=== PATIENT | female | born 1985 | race Caucasian/White ===

== ENCOUNTER 2017-11-11 11:53 | Emergency (ER) | payer MEDICAID, OTHER ==
[~2017-11-11] VITALS: Ht 157.5 cm; Wt 95.3 kg
[2017-11-11 11:59] VITALS: BP 120/75
--- NOTE | 2017-11-11 12:09 | NUR ---
32/F C/O RIGHT EYE REDNESS, TEARING AND INTERMITTENT PAIN FOR THE PAST 3 DAYS. PT DENIES ANY DRAINAGE. DENIES ANY INJURY TO EYE, DENIES FEELING LIKE SOMETHING IS INSIDE THE EYE. PT C/O PAIN WHEN PRESSING ON HER EYELID. EYES PERRLA. DENIES N/V/D. DENIES FEVER OR CHILLS. PT DENIES ANY CHANGES IN VISION, DENIES BLURRY VISION. AOX4 WITH CLEAR SPEECH. VSS.
--- NOTE | 2017-11-11 12:14 | NUR ---
DR. HOOD EVALUATING PT AT BEDSIDE
--- NOTE | 2017-11-11 12:14 | NUR ---
Patient being evaluated by Dr. Camara at bedside.
[2017-11-11] MEDS ORDERED: TETRACAINE HCL/PF 0.5% OPTH 4 ML BTL OP ONE (12:20)
[2017-11-11] MEDS ORDERED: TETRACAINE HCL/PF 0.5% OPTH 4 ML BTL ONE (12:20)
[2017-11-11] MEDS ORDERED: FLUORESCEIN OPTH STRIP 0.6 MG OP ONE (12:20)
[2017-11-11] MEDS ORDERED: FLUORESCEIN OPTH STRIP 0.6 MG ONE (12:21)
[2017-11-11 13:17] VITALS: BP 132/80
--- NOTE | 2017-11-11 13:17 | NUR ---
Patient discharged with v/s stable. Written and verbal after care instructions given and explained. Patient verbalized understanding. Ambulatory with steady gait. All questions addressed prior to discharge. Advised to follow up with PMD. Work excuse provided for today.
== END 2017-11-11 13:17 | disposition home or self-care (01) ==
LOC: MED 11:53
DX: H57.11 Ocular pain, right eye (principal)
CPT/HCPCS: 99283

== ENCOUNTER 2018-10-22 08:25 | Emergency (ER) | payer OTHER ==
[~2018-10-22] VITALS: Ht 157.5 cm; Wt 99.3 kg
[2018-10-22 08:36] VITALS: BP 135/85
--- NOTE | 2018-10-22 08:45 | NUR ---
PT. BIB SELF WITH C/O VOMITING, DIARRHEA, STOMACH CRAMPS X YESTERDAY. PT STATES SHE ATE SOME BAD CHICKEN YESTERDAY. PT. DENIES ANY BLOOD IN VOMIT OR FECES. PT HAS 6/10 ABD CRAMPING PAIN THAT RADIATES ALL OVER ABD. DENIES ANY FEVER OR CHILLS. LAST TIME SHE VOMITED WAS AT 0630 PER PATIENT. ABD ROUND AND SOFT AND ACTIVE X 4 QUADS. ER MD MADE AWARE. SAFETY PRECAUTIONS IMPLEMENTED. WILL CONTINUE TO MONITOR.
[2018-10-22] MEDS ORDERED: DIPHENOXYLATE /ATROPINE 2.5 MG TAB PO ONE (09:20)
[2018-10-22] MEDS ORDERED: ONDANSETRON 4 MG ODT PO ONE (09:20)
[2018-10-22 10:04] VITALS: BP 130/86
--- NOTE | 2018-10-22 10:04 | NUR ---
Patient discharged with v/s stable. Written and verbal after care instructions given and explained. Patient alert, oriented and verbalized understanding of instructions. Ambulatory with steady gait. All questions addressed prior to discharge. ID band removed. Patient advised to follow up with PMD. Rx of LOMOTIL AND ZOFRAN given. Patient educated on indication of medication including possible reaction and side effects. Opportunity to ask questions provided and answered.
== END 2018-10-22 10:04 | disposition home or self-care (01) ==
LOC: MED 08:25
DX: R11.2 Nausea with vomiting, unspecified (principal); R19.7 Diarrhea, unspecified
CPT/HCPCS: 99283; Q0162

== ENCOUNTER 2019-11-22 23:17 | Emergency (ER) | payer OTHER ==
[~2019-11-22] VITALS: Ht 157.5 cm; Wt 93.0 kg
--- NOTE | 2019-11-22 23:18 | NUR ---
PT JOB ALS TO ER BED 9
--- NOTE | 2019-11-22 23:20 | NUR ---
PER EMS AND PATIENT [place] [employer] ON SCENE. OFFICER: Jamal GODWIN
[2019-11-22 23:22] VITALS: BP 145/97
--- NOTE | 2019-11-22 23:22 | NUR ---
DR. JAIME BEDSIDE EVALUATING PT
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
[2019-11-22] MEDS ORDERED: AMOXIL/CLAVULANATE 875/125 MG 1 TAB PO ONE (23:30)
[2019-11-22] MEDS ORDERED: LIDOCAINE 2% 1000 MG/50 ML VIAL INJ ONE (23:30)
[2019-11-22] MEDS ORDERED: KETOROLAC 30 MG/ML VIAL IM ONE (23:30)
[2019-11-22] MEDS ORDERED: LORazepam 1 MG TAB PO ONE (23:30)
--- NOTE | 2019-11-22 23:47 | NUR ---
AT BEDSIDE PERFORMING LAC REPAIR
[2019-11-23] MEDS ORDERED: BACITRACIN OINT 500 UNITS/GM PKT TP ONE ×2 (00:11→00:20)
[2019-11-23 00:29] VITALS: BP 140/90
--- NOTE | 2019-11-23 00:29 | NUR ---
Patient discharged with v/s stable. Written and verbal after care instructions given and explained. Patient alert, oriented and verbalized understanding of instructions. Ambulatory with steady gait. All questions addressed prior to discharge. ID band removed. Patient advised to follow up with PMD. Rx of AUGMENTIN/IBUPROFEN given. Patient educated on indication of medication including possible reaction and side effects. Opportunity to ask questions provided and answered.
--- NOTE | 2019-11-23 00:31 | NUR ---
Note domenicaone in EDM - 11/23/19 at 0036 by ABBY Patient discharged with v/s stable. Written and verbal after care instructions given and explained to parent/guardian. Parent/Guardian verbalized understanding of instructions. Ambulatory with steady gait. All questions addressed prior to discharge. ID band removed. Parent/Guardian advised to follow up with PMD. Rx of amoxicillin, motrin given. Parent/Guardian educated on indication of medication including possible reaction and side effects. Opportunity to ask questions provided and answered.
== END 2019-11-23 00:22 | disposition home or self-care (01) ==
LOC: MED 23:17
DX: S01.112A Laceration without foreign body of left eyelid and periocular area, initial encounter (principal); Y04.1XXA Assault by human bite, initial encounter; Y93.89 Activity, other specified; Y92.89 Other specified places as the place of occurrence of the external cause; Y99.8 Other external cause status
CPT/HCPCS: 12014; 96372; 99284; J1885; J2001

== ENCOUNTER 2019-12-01 09:18 | Emergency (ER) | payer OTHER ==
[~2019-12-01] VITALS: Ht 157.5 cm; Wt 94.5 kg
[2019-12-01 09:23] VITALS: BP 128/98
--- NOTE | 2019-12-01 09:26 | NUR ---
Patient ambulated to bed 4. RN evaluating patient at bedside.
--- NOTE | 2019-12-01 09:40 | NUR ---
dr poe at bedside for suture removal
--- NOTE | 2019-12-01 09:43 | NUR ---
PT NEEDS SUTURE REMOVAL TO LEFT EYEBROW THAT WAS PLACED 11/22/19 15 SUTURES PLACED. -REDNESS, -D/C, -PAIN. PT VS STABLE. PT ALERT AND AWAKE, AMBULATORY.
--- NOTE | 2019-12-01 10:00 | NUR ---
Patient discharged with v/s stable. Written and verbal after care instructions given and explained. Patient verbalized understanding. Ambulatory with steady gait. All questions addressed prior to discharge. Advised to follow up with PMD. PT ADVISED TO APPLY BACITRACIN TO SITE
== END 2019-12-01 10:00 | disposition home or self-care (01) ==
LOC: MED 09:18
DX: S01.112D Laceration without foreign body of left eyelid and periocular area, subsequent encounter (principal); X58.XXXD Exposure to other specified factors, subsequent encounter
CPT/HCPCS: 99281

== ENCOUNTER 2019-12-13 10:45 | Emergency (ER) | payer OTHER ==
[~2019-12-13] VITALS: Ht 157.5 cm; Wt 94.0 kg
--- NOTE | 2019-12-13 10:50 | NUR ---
Patient ambulated to bed 12. RN evaluating the patient at bedside.
[2019-12-13 10:55] VITALS: BP 115/78
--- NOTE | 2019-12-13 10:55 | NUR ---
RAND ROY AT BEDSIDE
--- NOTE | 2019-12-13 11:04 | NUR ---
Dr. Olivera is evaluating the patient at bedside.
--- NOTE | 2019-12-13 11:05 | NUR ---
PT C/O PRESSURE-LIKE STERNAL CP RADIATING TO UPPER BACK FOR ONE WEEK. PT ALSO REPORTS NAUSE, SOB, DRY COUGH, AND ACID REFLUX. DENIES FEVER, RECENT TRAVEL OR SICK CONTACTS. PATIENT STATES PAIN OF 8/10 AT THIS TIME; VSS; PATIENT POSITIONED FOR COMFORT; HOB ELEVATED; BEDRAILS UP X1; BED DOWN. ER MD MADE AWARE OF PT STATUS.
[2019-12-13] MEDS ORDERED: ALUMINUM HYD/MAG/SIMETHICONE 30 ML UDC ONE (11:09)
[2019-12-13] MEDS ORDERED: LIDOCAINE VISCOUS 2% 20 ML UDC ONE (11:09)
[2019-12-13] MEDS ORDERED: DICYCLOMINE HCL LIQUID 20 MG, ALUMINUM HYD/MAG/SIMETHICONE 30 ML, LIDOCAINE VISCOUS 2% ... PO ONE ×3 (11:10)
[2019-12-13] MEDS ORDERED: DICYCLOMINE HCL LIQUID 10 MG/5 ML UDC ONE (11:10)
[2019-12-13 13:04] VITALS: BP 125/75
--- NOTE | 2019-12-13 13:04 | NUR ---
Patient discharged with v/s stable. Written and verbal after care instructions given and explained. Patient alert, oriented and verbalized understanding of instructions. Ambulatory with steady gait. All questions addressed prior to discharge. ID band removed. Patient advised to follow up with PMD. Rx of PRILOSEC given. Patient educated on indication of medication including possible reaction and side effects. Opportunity to ask questions provided and answered.
== END 2019-12-13 13:04 | disposition home or self-care (01) ==
LOC: MED 10:45
DX: K29.70 Gastritis, unspecified, without bleeding (principal)
CPT/HCPCS: 71045; 99283

== ENCOUNTER 2020-03-03 13:23 | Emergency (ER) | payer OTHER ==
[~2020-03-03] VITALS: Ht 157.5 cm; Wt 90.7 kg
[2020-03-03 13:32] VITALS: BP 150/85
--- NOTE | 2020-03-03 13:54 | NUR ---
C/O EPIGASTRIC PAIN 10/10 RADIAITNG UP CHEST X 2 WEEKS. STATES SHE FEELS IF SHE HAS TO BURP. STATES SHE WAS PRESCRIBED OMEPRAZOLE FOR S/S BUT HAS HAD NO RELIEF. PT STATES PAIN IS WORSE AFTER EATING. PT STATES SHE TENDS TO EAT SPICY FOOD, INSTRUCTED PT TO AVOID EATING SPICY FOOD IT WORSENS GERD. PT DENIES N/V/D. PT HAS COVID TESTED NEGATIVE 2 WEEKS AGO. 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 PT ALERT AND AWAKE, AMBULATORY. MED HX:DENIES
[2020-03-03] MEDS ORDERED: DICYCLOMINE HCL LIQUID 20 MG, ALUMINUM HYD/MAG/SIMETHICONE 30 ML, LIDOCAINE VISCOUS 2% ... PO ONE ×3 (13:55)
[2020-03-03] MEDS ORDERED: DICYCLOMINE HCL LIQUID 10 MG/5 ML UDC ONE (14:00)
[2020-03-03] MEDS ORDERED: ALUMINUM HYD/MAG/SIMETHICONE 30 ML UDC ONE (14:00)
[2020-03-03] MEDS ORDERED: LIDOCAINE VISCOUS 2% 20 ML UDC ONE (14:00)
--- NOTE | 2020-03-03 14:03 | NUR ---
GI COCKTAIL ADMINISTERED
--- NOTE | 2020-03-03 14:58 | NUR ---
PT REPORTS RELIEF FROM ACID REFLEX, PAIN / NOW
[2020-03-03 14:59] VITALS: BP 142/74
--- NOTE | 2020-03-03 14:59 | NUR ---
Patient discharged with v/s stable. Written and verbal after care instructions given and explained REGARDING INDIGESTION. Patient alert, oriented and verbalized understanding of instructions. Ambulatory with steady gait. All questions addressed prior to discharge. ID band removed. Patient advised to follow up with PMD. Rx of MAALOX AND PEPCID given. Patient educated on indication of medication including possible reaction and side effects. Opportunity to ask questions provided and answered. PT ISNTRUCTED TO FOLLOW UP WITH PCP AND SUGGEST AN ENDOSCOPY AND H PYLOYI TEST
== END 2020-03-03 14:59 | disposition home or self-care (01) ==
LOC: MED 13:23
DX: R07.9 Chest pain, unspecified (principal); I10 Essential (primary) hypertension; K21.9 Gastro-esophageal reflux disease without esophagitis
CPT/HCPCS: 71045; 81025; 93005; 99283; Q0092; 99284

== ENCOUNTER 2020-04-04 07:58 | Emergency (ER) | payer OTHER ==
[~2020-04-04] VITALS: Ht 157.5 cm; Wt 90.7 kg
[2020-04-04 08:06] VITALS: BP 145/89
[2020-04-04 08:41] VITALS: BP 145/89
== END 2020-04-04 08:40 | disposition home or self-care (01) ==
LOC: MED 07:58
DX: H10.9 Unspecified conjunctivitis (principal)
CPT/HCPCS: 99283

== ENCOUNTER 2020-11-04 02:40 | Emergency (ER) | payer OTHER ==
[~2020-11-04] VITALS: Ht 157.5 cm; Wt 87.6 kg
[2020-11-04 02:43] VITALS: BP 134/96
[2020-11-04] MEDS ORDERED: IBUPROFEN 600 MG TAB PO ONE (03:25)
[2020-11-04] MEDS ORDERED: IBUP-2213 PO (03:30)
[2020-11-04 03:38] VITALS: BP 134/96
== END 2020-11-04 03:38 | disposition home or self-care (01) ==
LOC: MED 02:40
DX: T19.2XXA Foreign body in vulva and vagina, initial encounter (principal); Z79.899 Other long term (current) drug therapy; X58.XXXA Exposure to other specified factors, initial encounter; Y93.89 Activity, other specified; Y92.89 Other specified places as the place of occurrence of the external cause; Y99.8 Other external cause status
CPT/HCPCS: 99284

== ENCOUNTER 2021-03-17 22:59 | Emergency (ER) | payer OTHER ==
[~2021-03-17] VITALS: Ht 157.5 cm; Wt 80.7 kg
[~2021-03-17 22:59] MED LIST: IBUP-2213 PO
[2021-03-17 23:05] VITALS: BP 150/90
--- NOTE | 2021-03-17 23:05 | NUR ---
TO BED AMBULATORY
--- NOTE | 2021-03-17 23:15 | NUR ---
JASON CAST AT BEDSIDE FOR EMDICAL EVALUATION.
--- NOTE | 2021-03-17 23:23 | NUR ---
35 Y.O FEMALE VAG PAIN, ITCHINESS, FOUL SMELL, AND WITH D/C FOR 3 DAYS. PATIENT REPORTS HAVING MULTIPLE PARTNERS. AAOX4. PMH DENIES NKA
[2021-03-17] MEDS ORDERED: cefTRIAXone 500 MG in LIDOCAINE MPF 1% 1 ML IM ONE (23:25)
[2021-03-17] MEDS ORDERED: cefTRIAXone 500 MG VIAL ONE (23:35)
[2021-03-17] MEDS ORDERED: LIDOCAINE MPF 1% 5 ML ONE (23:35)
--- NOTE | 2021-03-18 00:16 | NUR ---
Female [employer] Teacher accompanied female patient for Pelvic Exam.
[2021-03-18 00:32] LABS: RAPID PLASMA REAGIN NON-REACTIVE (Non Reactiv)
[2021-03-18] MEDS ORDERED: METR500T1 PO (00:33)
[2021-03-18] MEDS ORDERED: DOXY100C9 PO (00:33)
[2021-03-18 00:39] VITALS: BP 149/100
--- NOTE | 2021-03-18 00:39 | NUR ---
Patient discharged with v/s stable. Written and verbal after care instructions given and explained. Patient alert, oriented and verbalized understanding of instructions. Ambulatory with steady gait. All questions addressed prior to discharge. ID band removed. Patient advised to follow up with PMD. Rx of Flagyl and doxycycline Hyclate given. Patient educated on indication of medication including possible reaction and side effects. Opportunity to ask questions provided and answered.
== END 2021-03-18 00:39 | disposition home or self-care (01) ==
LOC: MED 22:59
DX: N72 Inflammatory disease of cervix uteri (principal)
CPT/HCPCS: 36415; 86592; 86703; 96372; 99283; J0696; J2001

== ENCOUNTER 2021-05-05 11:26 | Emergency (ER) | payer OTHER ==
[~2021-05-05] VITALS: Ht 157.5 cm; Wt 77.1 kg
[~2021-05-05 11:26] MED LIST changes: +DOXY-690 PO; +METR500T1 PO
[2021-05-05 11:31] VITALS: BP 139/94
--- NOTE | 2021-05-05 11:37 | NUR ---
PT TO AWAIT IN LOBBY
[2021-05-05] MEDS ORDERED: DOXYCYCLINE 100 MG CAP PO STA (12:38)
[2021-05-05] MEDS ORDERED: DOXY-690 PO (12:40)
[2021-05-05] MEDS ORDERED: cefTRIAXone 500 MG VIAL IM ONE (12:40)
[2021-05-05] MEDS ORDERED: PHEN-1877 PO (12:40)
[2021-05-05] MEDS ORDERED: LIDOCAINE MPF 1% 5 ML ONE (13:00)
[2021-05-05 13:03] LABS: APPEARANCE,URINE CLEAR (CLEAR); BILIRUBIN,URINE NEGATIVE (NEGATIVE); BLOOD, URINE NEGATIVE (NEGATIVE); COLOR,URINE YELLOW (YELLOW); LEUKOCYTE ESTERASE ,URINE NEGATIVE (NEGATIVE); NITRITE, URINE NEGATIVE (NEGATIVE); PH,URINE 6.5 (5.0-9.0); UGLUCOSE NEGATIVE (NEGATIVE)
--- NOTE | 2021-05-05 13:09 | NUR ---
Patient discharged with v/s stable. Written and verbal after care instructions given and explained. Patient alert, oriented and verbalized understanding of instructions. Ambulatory with steady gait. All questions addressed prior to discharge. ID band removed. Patient advised to follow up with PMD. Rx of Doxycycline, Pyridium given. Patient educated on indication of medication including possible reaction and side effects. Opportunity to ask questions provided and answered.
[2021-05-05 13:23] LABS: RBC,URINE 0-5 /HPF (0-5); WBC,URINE 0-5 /HPF (0-5)
== END 2021-05-05 13:09 | disposition home or self-care (01) ==
LOC: MED 11:26
DX: A64 Unspecified sexually transmitted disease (principal)
CPT/HCPCS: 36415; 81001; 81025; 87491; 96372; 99283; J0696; J2001

== ENCOUNTER 2021-05-23 23:07 | Emergency (ER) | payer OTHER ==
[~2021-05-23] VITALS: Ht 157.5 cm; Wt 77.1 kg
[~2021-05-23 23:07] MED LIST changes: +PHEN-1877 PO
[2021-05-23 23:21] VITALS: BP 160/107
--- NOTE | 2021-05-23 23:27 | NUR ---
ERMD ASSESSING PT IN [facility].
--- NOTE | 2021-05-23 23:30 | NUR ---
VAGINAL WET MOUNT COLLECTED AND TAKEN TO LAB.
--- NOTE | 2021-05-23 23:32 | NUR ---
PT AMBULATED TO RESTROOM.
[2021-05-23] MEDS ORDERED: cefTRIAXone 1,000 MG in LIDOCAINE MPF 1% 2.1 ML IM ONE (23:35)
[2021-05-23] MEDS ORDERED: LIDOCAINE MPF 1% 5 ML ONE (23:40)
[2021-05-23] MEDS ORDERED: cefTRIAXone 1,000 MG VIAL ONE (23:40)
[2021-05-24 00:07] VITALS: BP 160/107
[2021-05-24] MEDS ORDERED: METR500T1 PO (00:07)
[2021-05-24] MEDS ORDERED: DOXY-690 PO (00:07)
--- NOTE | 2021-05-24 00:07 | NUR ---
PT LEFT PRIOR TO RECIEVING D/C PAPERS.
== END 2021-05-24 00:07 | disposition home or self-care (01) ==
LOC: MED 23:07
DX: N76.0 Acute vaginitis (principal)
CPT/HCPCS: 87210; 96372; 99284; J0696; J2001

== ENCOUNTER 2021-07-04 16:40 | Emergency (ER) | payer OTHER ==
[~2021-07-04] VITALS: Ht 157.5 cm; Wt 88.9 kg
[2021-07-04 16:45] VITALS: BP 148/105
[2021-07-04] MEDS ORDERED: cefTRIAXone 500 MG in LIDOCAINE MPF 1% 1 ML IM ONE (17:05)
[2021-07-04] MEDS ORDERED: metroNIDAZOLE 250 MG TAB PO ONE (17:05)
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
[2021-07-04] MEDS ORDERED: LIDOCAINE MPF 1% 5 ML ONE (17:25)
[2021-07-04] MEDS ORDERED: cefTRIAXone 500 MG VIAL ONE (17:25)
[2021-07-04] MEDS ORDERED: metroNIDAZOLE 500 MG TAB PO SCH (17:30)
--- NOTE | 2021-07-04 18:00 | NUR ---
PT LEFT WITHOUT DISCHARGE PAPERS.
[2021-07-04 18:03] VITALS: BP 148/105
[2021-07-04] MEDS ORDERED: VIB100 PO (18:07)
== END 2021-07-04 18:00 | disposition home or self-care (01) ==
LOC: MED 16:40
DX: R10.2 Pelvic and perineal pain (principal); R03.0 Elevated blood-pressure reading, without diagnosis of hypertension; F17.210 Nicotine dependence, cigarettes, uncomplicated; Z11.3 Encounter for screening for infections with a predominantly sexual mode of transmission; Z79.899 Other long term (current) drug therapy
CPT/HCPCS: 36415; 81002; 81025; 87210; 87491; 96372; 99283; J0696; J2001